=== PATIENT | female | born 1950 | race Caucasian/White ===

== ENCOUNTER 2021-05-04 12:42 | Outpatient (CLI) | payer OTHER | END 2021-05-04 12:43 | disposition home or self-care (01) | LOC: ULT 12:42 | PROVIDERS: ATTEND Internal Medicine | DX: N17.8 Other acute kidney failure (principal); N28.1 Cyst of kidney, acquired | CPT/HCPCS: 76770 ==

== ENCOUNTER 2022-01-23 18:10 | Emergency (ER) | payer OTHER ==
[2022-01-23] MEDS ORDERED: Morphine 4 MG/ML VIAL ONE (18:27)
[2022-01-23] MEDS ORDERED: Ketorolac Tromethamine 30 MG/ML VIAL ONE (18:27)
[2022-01-23 18:38] LABS: #Basophils 0.1 thou/uL (0.0-0.2); #Eosinphils 0.4 thou/uL (0.0-0.7); #Lymphocytes 3.1 thou/uL (1.20-3.40); #Monocytes 0.7 thou/uL (0.11-0.59); #Neutrophils 4.3 thou/uL (1.40-6.50); %Basophils 0.6 % (0.0-1.0); %Eosinophils 4.7 % (0.0-10.0); %Lymphocytes 36.7 % (21.0-51.0); %Monocytes 7.6 % (0.0-10.0); %Neutrophils 50.4 % (42.0-75.0); Mean Corpuscular HGB CONC 33.6 g/dL (32.0-36.0); Mean Corpuscular Hemoglobin 32.2 pg (27.0-31.0); Mean Corpuscular Volume 95.8 fl (78.0-98.0); Mean Platelet Volume 7.2 fL (7.4-10.4); Platelet Count 284 10x3/uL (130-400); RBC Distribution Width 12.1 % (11.5-14.5); Red Blood Cell (RBC) Count 4.67 mill/uL (4.20-5.40); White Blood Cell (WBC) Count 8.5 10x3/uL (4.8-10.8)
[2022-01-23 19:04] LABS: ALT (SGPT) 17 U/L (8-55); AST (SGOT) 17 U/L (5-34); Albumin 3.8 g/dL (3.4-4.8); Alkaline Phosphatase 63 U/L (40-110); Anion Gap 17 mmol/L (10-20); BUN (Urea Nitrogen) 13 mg/dL (9.8-20.1); Bilirubin, Total 0.5 mg/dL (0.2-1.2); Calc. Creatinine Clearance 0 mL/min (70-130); Calcium 9.3 mg/dL (7.8-10.44); Carbon Dioxide 21 mmol/L (23-31); Chloride 105 mmol/L (98-107); Estimated GFR 57; Globulin 3.2 g/dL (2.4-3.5); Glucose 148 mg/dL (83-110); Potassium 4.2 mmol/L (3.5-5.1); Sodium 139 mmol/L (136-145)
== END 2022-01-23 21:31 | disposition home or self-care (01) ==
LOC: ERS 18:10
DX: T21.22XA Burn of second degree of abdominal wall, initial encounter (principal); I10 Essential (primary) hypertension; E03.9 Hypothyroidism, unspecified; Z79.899 Other long term (current) drug therapy; X10.1XXA Contact with hot food, initial encounter
CPT/HCPCS: 80053; 85025; 96374; 96375; J1885; J2270

== ENCOUNTER 2022-04-01 16:09 | Emergency (ER) | payer OTHER ==
[2022-04-01] MEDS ORDERED: Morphine 4 MG/ML VIAL ONE (16:57)
[2022-04-01] MEDS ORDERED: Ondansetron PF 4 MG/2 ML Vial ONE (16:57)
[2022-04-01] MEDS ORDERED: Ketorolac Tromethamine 30 MG/ML VIAL ONE ×2 (18:53→18:55)
== END 2022-04-01 19:44 | disposition home or self-care (01) ==
LOC: ERS 16:09
DX: M54.50 Low back pain, unspecified (principal); I10 Essential (primary) hypertension; E03.9 Hypothyroidism, unspecified; W18.30XA Fall on same level, unspecified, initial encounter; Y92.89 Other specified places as the place of occurrence of the external cause
CPT/HCPCS: 74176; 96374; 96375; J1885; J2270; J2405